=== PATIENT | male | born 1940 | race Caucasian/White ===

== ENCOUNTER 2022-04-01 08:39 | Outpatient (REF) | payer MEDICARE, SELFPAY ==
--- NOTE | ~2022-04-01 | XR_ITS ---
EXAMINATION: CR X-RAY KNEES BILATERAL STANDING, RIGHT KNEE 2 VIEW CLINICAL INFORMATION: Knee pain. COMPARISON: Right knee radiographs dated 02/28/2019. TECHNIQUE: Bilateral standing AP views of the knees were obtained along with axial moderate diffuse of the right knee. FINDINGS: Left: The patient is status post left knee arthroplasty showing good anatomic alignment and no evidence for hardware malfunction. Right: Mild to moderate tricompartmental degenerative joint changes are seen most pronounced in the medial femoral-tibial and lateral femoral tibial joint spaces. There is no acute fracture, dislocation or joint effusion. The soft tissues are unremarkable. XR/XR knee standing BI IMPRESSION: 1. No left knee hardware abnormality. No significant change. 2. Mild to moderate right knee degenerative joint changes appear similar if not minimally increased compared to the 2019 study.
--- NOTE | ~2022-04-01 | XR_ITS ---
EXAMINATION: CR X-RAY KNEES BILATERAL STANDING, RIGHT KNEE 2 VIEW CLINICAL INFORMATION: Knee pain. COMPARISON: Right knee radiographs dated 02/28/2019. TECHNIQUE: Bilateral standing AP views of the knees were obtained along with axial moderate diffuse of the right knee. FINDINGS: Left: The patient is status post left knee arthroplasty showing good anatomic alignment and no evidence for hardware malfunction. Right: Mild to moderate tricompartmental degenerative joint changes are seen most pronounced in the medial femoral-tibial and lateral femoral tibial joint spaces. There is no acute fracture, dislocation or joint effusion. The soft tissues are unremarkable. XR/XR knee RT 2V IMPRESSION: 1. No left knee hardware abnormality. No significant change. 2. Mild to moderate right knee degenerative joint changes appear similar if not minimally increased compared to the 2019 study.
== END 2022-04-01 08:40 | disposition home or self-care (01) ==
LOC: HO.HOSX 08:39
PROVIDERS: Visit Provider Orthopaedic Surgery
DX: M17.11 Unilateral primary osteoarthritis, right knee (principal)
CPT/HCPCS: 20610; 73560; 73565; 99202; J1100

== ENCOUNTER → 2022-05-26 10:36 | Outpatient (BNVA) | payer MEDICARE, OTHER, SELFPAY | PROVIDERS: PCP Internal Medicine; Visit Provider Orthopaedic Surgery | DX: M17.11 Unilateral primary osteoarthritis, right knee (principal) | CPT/HCPCS: 99212 ==

== ENCOUNTER 2023-11-09 13:51 | Outpatient (AMB) | payer MEDICARE, OTHER, SELFPAY ==
--- NOTE | 2023-11-09 13:58 | A.OFFVIS_ITS ---
Intake Visit Reasons: OV - Right Knee Injection last done 03/27 Intake Note: Stanislaw is an 81 year old male who presnets today for a follow up of his right knee. Last Injection done 03/27/23. Patient reports that this injection was helpful and would like to repeat injection He also reports that he is having right hip pain, that radiates down the leg. He was in [place] visiting his daughter where they slept on trundel beds which were very hard, this is when his pain started. Allergies No Known Allergies Allergy (Verified 04/01/22 11:37) HPI HPI OV - Right Knee Injection last done 03/27: Details: Right knee pain has returned since injection 03/27. Prior injection was helpful. He has been active and walks regularly. [facility] Medical History Crohn's disease Surgical History H/O prostatectomy History of left knee replacement (~2009) Physical Exam Const General: no acute distress and alert Orientation/consciousness: patient oriented x3 Neuro General: patient oriented x3 Extrem Other: Right Knee: tenderness over the proximal lateral aspect of the patellofemoral joint Neg Asif's trace effusion no joint line pain Office Procedures Joint Injection/Drain Joint Injection/Drain Details: Injected 1 mL of Decadron and 3 mL 1% lidocaine and 3 mL of 0.25% Marcaine. Site was prepped using aseptic technique. Patient tolerated the procedure well. Primary Site: right knee Approach Used: anterolateral Coding - Large joint Procedure code (CPT) selection complete Assessment & Plan Assessment & Plan (1) Osteoarthritis of right knee: Code(s): M17.11 - Unilateral primary osteoarthritis, right knee Category: Medical Plan: This is an 83 year old man with right knee OA and ~3 weeks increased pain. He lives an active lifestyle, he was last injected on ~ 8 months ago, with good relief and has found good relief from injections in the past. I injected his knee and he may follow up as needed. Coding Level of Care Code Est Pt Level 3 (49194) Diagnoses Osteoarthritis of right knee M17.11 CPT Codes Coding - Large joint: 77124 - Large joint ([id number])
== END 2023-11-09 14:46 | disposition home or self-care (01) ==
PROVIDERS: PCP Internal Medicine; Visit Provider Orthopaedic Surgery
DX: M17.11 Unilateral primary osteoarthritis, right knee (principal)
CPT/HCPCS: 20610; 99213

== ENCOUNTER → 2023-11-09 13:51 | Outpatient (BNVA) | payer MEDICARE, OTHER, SELFPAY | PROVIDERS: PCP Internal Medicine; Visit Provider Orthopaedic Surgery | DX: M17.11 Unilateral primary osteoarthritis, right knee (principal); Z96.652 Presence of left artificial knee joint | CPT/HCPCS: 20610; 99212; J0665; J1100 ==